=== PATIENT | male | born 1945 | race Caucasian/White ===

== ENCOUNTER 2017-02-01 08:00 | Outpatient (CLI) | payer MEDICARE, OTHER ==
[2017-02-01 18:52] LABS: BILIRUBIN,DIRECT 0.1 mg/dL (0.1-0.5); BUN - BLOOD UREA NITROGEN 19 mg/dL (6-20); CARBON DIOXIDE - CO2 24 mmol/L (21-32); CHLORIDE 106 mmol/L (101-111); CHOL/HDL RATIO 4.7 (<5.0); CHOLESTEROL 238 mg/dL; CREATININE 0.8 mg/dL (0.6-1.2); GFR - MDRD 95 (>89); GLUCOSE 108 mg/dL (70-100); HDL CHOLESTEROL 51 mg/dL; LDL/HDL RATIO 3.3 (<3.6); POTASSIUM 4.1 mmol/L (3.5-5.0); SODIUM 138 mmol/L (135-145); TOTAL PROTEIN 6.6 g/dL (6.7-8.2); TRIGLYCERIDES 86 mg/dL; VLDL CHOLESTEROL 17 mg/dL
== END 2017-02-01 08:01 | disposition home or self-care (01) ==
LOC: LAB.S 08:00
PROVIDERS: ATTEND Internal Medicine Cardiovascular Disease
DX: Z79.899 Other long term (current) drug therapy (principal)
CPT/HCPCS: 36415; 80048; 80061; 80076; 83735

== ENCOUNTER 2018-07-23 11:13 | Outpatient (CLI) | payer MEDICARE, OTHER | END 2018-07-23 11:14 | disposition home or self-care (01) | LOC: DI 11:13 | PROVIDERS: ATTEND Internal Medicine Cardiovascular Disease | DX: I35.1 Nonrheumatic aortic (valve) insufficiency (principal); I10 Essential (primary) hypertension; I77.810 Thoracic aortic ectasia | CPT/HCPCS: 93306 ==

== ENCOUNTER 2018-08-22 08:00 | Outpatient (CLI) | payer MEDICARE, OTHER ==
[2018-08-22 18:42] LABS: MAGNESIUM 2.3 mg/dL (1.7-2.8)
== END 2018-08-22 23:59 | disposition home or self-care (01) ==
LOC: LAB.S 08:00
PROVIDERS: ATTEND Internal Medicine Cardiovascular Disease
DX: Z51.81 Encounter for therapeutic drug level monitoring (principal); Z79.899 Other long term (current) drug therapy
CPT/HCPCS: 36415; 80048; 83735

== ENCOUNTER 2021-07-22 14:19 | Outpatient (CLI) | payer MEDICARE, OTHER ==
--- NOTE | 2021-07-22 17:03 | Ultrasound Report ---
PROCEDURE: Testicle INDICATIONS: SCROTAL MASS TECHNIQUE: Real-time scanning was performed of the scrotum and testicles, with image documentation. Color and p ulse Doppler interrogation was performed of both testicles. COMPARISON: None. FINDINGS: Right: Testicle is normal in size at 3.9 x 3.1 x 2.6 cm, and homogenous in echotexture. Epididymis is normal in overall size and morphology. There is a large right hydrocele with mobile echogenic debr is present. Avascular septations are also present. Overlying scrotal skin is normal in thickness. Left: Testicle is normal in size at 3.9 x 2.5 x 2.6 cm, and homogeneous in echotexture. There are mu ltiple epididymal head cysts, the largest of which measures 1.1 x 1.0 x 1.0 cm. There is a large left hydrocele with obile echogenic debris and septations. Overlying scrotal skin is normal in thickness. Doppler: Color and pulse Doppler demonstrate normal and symmetric arterial flow in both testicles. IMPRESSION: 1. Large bilateral hydroceles with mobile echogenic debris and internal septations. 2. Multiple left epididymal head cysts. Reviewed by: Camelia James MD on 07/22/2021 5:02 PM PDT Approved by: Camelia James MD on 07/22/2021 5:02 PM PDT Station ID: [id number]
== END 2021-07-22 14:20 | disposition home or self-care (01) ==
LOC: DI 14:19
PROVIDERS: ATTEND Internal Medicine
DX: N43.3 Hydrocele, unspecified (principal); N50.3 Cyst of epididymis

== ENCOUNTER 2021-09-15 10:05 | Outpatient (CLI) | payer MEDICARE, OTHER | END 2021-09-15 10:06 | disposition home or self-care (01) | LOC: LAB.S 10:05 | PROVIDERS: ATTEND Internal Medicine Cardiovascular Disease | DX: I48.20 Chronic atrial fibrillation, unspecified (principal) | CPT/HCPCS: 36416; 85610 ==

== ENCOUNTER 2021-09-26 10:24 | Outpatient (CLI) | payer MEDICARE, OTHER | END 2021-09-26 10:25 | disposition home or self-care (01) | LOC: LAB.S 10:24 | PROVIDERS: ATTEND Internal Medicine Cardiovascular Disease | DX: I48.20 Chronic atrial fibrillation, unspecified (principal) | CPT/HCPCS: 36416; 85610 ==

== ENCOUNTER 2021-10-15 13:02 | Outpatient (CLI) | payer MEDICARE, OTHER | END 2021-10-15 13:03 | disposition home or self-care (01) | LOC: LAB.S 13:02 | PROVIDERS: ATTEND Internal Medicine Cardiovascular Disease | DX: I48.20 Chronic atrial fibrillation, unspecified (principal) | CPT/HCPCS: 36416; 85610 ==

== ENCOUNTER 2021-11-25 11:32 | Outpatient (CLI) | payer MEDICARE, OTHER | END 2021-11-25 11:33 | disposition home or self-care (01) | LOC: LAB.S 11:32 | PROVIDERS: ATTEND Internal Medicine Cardiovascular Disease | DX: I48.20 Chronic atrial fibrillation, unspecified (principal) | CPT/HCPCS: 36416; 85610 ==

== ENCOUNTER 2021-11-26 18:28 | Outpatient (CLI) | payer MEDICARE, OTHER | END 2021-11-26 18:29 | disposition left against medical advice (07) | LOC: EMS 18:28 | DX: E86.0 Dehydration (principal) ==

== ENCOUNTER 2022-01-23 09:57 | Outpatient (CLI) | payer MEDICARE, OTHER ==
[2022-01-23 14:50] LABS: BASOPHILS # (AUTO) 0.1 10^3/uL (0.0-0.1); BASOPHILS % (AUTO) 1.5 %; EOSINOPHILS # (AUTO) 0.1 10^3/uL (0.0-0.7); EOSINOPHILS % (AUTO) 2.2 %; HCT - HEMATOCRIT 45.4 % (42.0-52.0); HGB - HEMOGLOBIN 14.5 g/dL (14.0-18.0); LYMPHOCYTES % (AUTO) 24.7 %; MEAN CORPUSCULAR HEMOGLOBIN 30.9 pg (27.0-31.0); MEAN CORPUSCULAR HGB CONC 31.9 g/dL (32.0-36.0); MEAN CORPUSCULAR VOLUME 96.8 fL (80.0-94.0); MEAN PLATELET VOLUME 9.8 fL (7.4-11.4); MONOCYTES # (AUTO) 0.5 10^3/uL (0.0-1.0); MONOCYTES % (AUTO) 12.8 %; NEUTROPHILS # (AUTO) 2.4 10^3/uL (1.5-6.6); NEUTROPHILS % (AUTO) 58.3 %; PLT - PLATELET COUNT 163 10^3/uL (130-450); RED BLOOD COUNT 4.69 10^6/uL (4.70-6.10); RED CELL DISTRIBUTION WIDTH 14.6 % (12.0-15.0); WHITE BLOOD COUNT 4.1 x10^3/uL (4.8-10.8)
[2022-01-23 15:15] LABS: ALBUMIN 3.9 g/dL (3.2-5.5); ALBUMIN/GLOBULIN RATIO 1.3 (1.0-2.2); ALKALINE PHOSPHATASE 52 IU/L (42-121); ALT ALANINE AMINOTRANSFERASE 22 IU/L (10-60); AST ASPARTATE AMINOTRANSFERASE 21 IU/L (10-42); BILIRUBIN,TOTAL 0.8 mg/dL (0.2-1.0); BUN - BLOOD UREA NITROGEN 21 mg/dL (6-20); CALCIUM 8.8 mg/dL (8.5-10.3); CARBON DIOXIDE - CO2 31 mmol/L (21-32); CHLORIDE 101 mmol/L (101-111); CHOL/HDL RATIO 3.9 (<5.0); CHOLESTEROL 210 mg/dL; CREATININE 1.1 mg/dL (0.6-1.2); GFR - MDRD 65 (>89); GLUCOSE 110 mg/dL (70-100); HDL CHOLESTEROL 54 mg/dL; LDL CHOLESTEROL,CALCULATED 129 mg/dL; LDL/HDL RATIO 2.4 (<3.6); POTASSIUM 4.4 mmol/L (3.5-5.0); SODIUM 137 mmol/L (135-145); TOTAL PROTEIN 6.9 g/dL (6.7-8.2); TRIGLYCERIDES 137 mg/dL; VLDL CHOLESTEROL 27 mg/dL
[2022-01-23 18:02] LABS: ESTIMATED AVERAGE GLUCOSE 128 mg/dL (70-100); HEMOGLOBIN A1c% 6.1 % (4.27-6.07)
== END 2022-01-23 09:58 | disposition home or self-care (01) ==
LOC: LAB.S 09:57
PROVIDERS: ATTEND Internal Medicine Cardiovascular Disease
DX: Z00.00 Encounter for general adult medical examination without abnormal findings (principal); I48.19 Other persistent atrial fibrillation
CPT/HCPCS: 36415; 80053; 80061; 83036; 83721; 85025; 85610

== ENCOUNTER 2022-02-06 10:58 | Outpatient (CLI) | payer MEDICARE, OTHER | END 2022-02-06 10:59 | disposition home or self-care (01) | LOC: LAB.S 10:58 | PROVIDERS: ATTEND Internal Medicine Cardiovascular Disease | DX: I48.20 Chronic atrial fibrillation, unspecified (principal) | CPT/HCPCS: 36416; 85610 ==

== ENCOUNTER 2022-03-30 10:58 | Outpatient (CLI) | payer MEDICARE, OTHER | END 2022-03-30 10:59 | disposition home or self-care (01) | LOC: LAB.S 10:58 | PROVIDERS: ATTEND Internal Medicine Cardiovascular Disease | DX: I48.20 Chronic atrial fibrillation, unspecified (principal) | CPT/HCPCS: 36416; 85610 ==

== ENCOUNTER 2022-04-30 11:05 | Outpatient (CLI) | payer MEDICARE, OTHER | END 2022-04-30 11:06 | disposition home or self-care (01) | LOC: LAB.S 11:05 | PROVIDERS: ATTEND Internal Medicine Cardiovascular Disease | DX: I48.20 Chronic atrial fibrillation, unspecified (principal) | CPT/HCPCS: 36416; 85610 ==

== ENCOUNTER 2022-08-10 10:34 | Outpatient (CLI) | payer MEDICARE, OTHER | END 2022-08-10 10:35 | disposition home or self-care (01) | LOC: LAB.S 10:34 | PROVIDERS: ATTEND Internal Medicine Cardiovascular Disease | DX: I48.20 Chronic atrial fibrillation, unspecified (principal) | CPT/HCPCS: 36416; 85610 ==

== ENCOUNTER 2022-09-24 10:44 | Outpatient (CLI) | payer MEDICARE, OTHER | END 2022-09-24 10:45 | disposition home or self-care (01) | LOC: LAB.S 10:44 | PROVIDERS: ATTEND Internal Medicine Cardiovascular Disease | DX: I48.20 Chronic atrial fibrillation, unspecified (principal) | CPT/HCPCS: 36416; 85610 ==

== ENCOUNTER 2022-11-06 10:18 | Outpatient (CLI) | payer MEDICARE, OTHER | END 2022-11-06 10:19 | disposition home or self-care (01) | LOC: LAB.S 10:18 | PROVIDERS: ATTEND Internal Medicine Cardiovascular Disease | DX: I48.20 Chronic atrial fibrillation, unspecified (principal) | CPT/HCPCS: 85610 ==

== ENCOUNTER 2023-01-29 11:32 | Outpatient (CLI) | payer MEDICARE, OTHER | END 2023-01-29 11:33 | disposition home or self-care (01) | LOC: LAB.S 11:32 | PROVIDERS: ATTEND Internal Medicine Cardiovascular Disease | DX: I48.20 Chronic atrial fibrillation, unspecified (principal) | CPT/HCPCS: 36416; 85610 ==

== ENCOUNTER 2023-03-12 11:50 | Outpatient (CLI) | payer MEDICARE, OTHER | END 2023-03-12 11:51 | disposition home or self-care (01) | LOC: LAB.S 11:50 | PROVIDERS: ATTEND Internal Medicine Cardiovascular Disease | DX: I48.20 Chronic atrial fibrillation, unspecified (principal) | CPT/HCPCS: 36416; 85610 ==

== ENCOUNTER 2023-05-24 10:50 | Outpatient (CLI) | payer MEDICARE, OTHER | END 2023-05-24 10:51 | disposition home or self-care (01) | LOC: LAB.S 10:50 | PROVIDERS: ATTEND Internal Medicine Cardiovascular Disease | DX: I48.20 Chronic atrial fibrillation, unspecified (principal) | CPT/HCPCS: 36416; 85610 ==

== ENCOUNTER 2023-06-07 11:16 | Outpatient (CLI) | payer MEDICARE, OTHER | END 2023-06-07 11:17 | disposition home or self-care (01) | LOC: LAB.S 11:16 | PROVIDERS: ATTEND Internal Medicine Cardiovascular Disease | DX: I48.20 Chronic atrial fibrillation, unspecified (principal) | CPT/HCPCS: 36416; 85610 ==

== ENCOUNTER 2023-06-17 11:21 | Outpatient (CLI) | payer MEDICARE, OTHER ==
[2023-06-17 14:43] LABS: BASOPHILS # (AUTO) 0.1 10^3/uL (0.0-0.1); BASOPHILS % (AUTO) 1.2 %; EOSINOPHILS # (AUTO) 0.1 10^3/uL (0.0-0.7); EOSINOPHILS % (AUTO) 1.9 %; HCT - HEMATOCRIT 44.4 % (42.0-52.0); HGB - HEMOGLOBIN 14.1 g/dL (14.0-18.0); LYMPHOCYTES # (AUTO) 0.9 10^3/uL (1.5-3.5); LYMPHOCYTES % (AUTO) 21.6 %; MEAN CORPUSCULAR HEMOGLOBIN 30.8 pg (27.0-31.0); MEAN CORPUSCULAR HGB CONC 31.8 g/dL (32.0-36.0); MEAN CORPUSCULAR VOLUME 96.9 fL (80.0-94.0); MEAN PLATELET VOLUME 9.9 fL (7.4-11.4); MONOCYTES # (AUTO) 0.5 10^3/uL (0.0-1.0); MONOCYTES % (AUTO) 11.2 %; NEUTROPHILS # (AUTO) 2.7 10^3/uL (1.5-6.6); NEUTROPHILS % (AUTO) 63.4 %; PLT - PLATELET COUNT 179 10^3/uL (130-450); RED BLOOD COUNT 4.58 10^6/uL (4.70-6.10); RED CELL DISTRIBUTION WIDTH 14.2 % (12.0-15.0); WHITE BLOOD COUNT 4.3 x10^3/uL (4.8-10.8)
[2023-06-17 15:41] LABS: CALCIUM 9.9 mg/dL (8.5-10.3); POTASSIUM 4.7 mmol/L (3.5-4.5)
== END 2023-06-17 11:22 | disposition home or self-care (01) ==
LOC: LAB.S 11:21
PROVIDERS: ATTEND Internal Medicine
DX: I48.91 Unspecified atrial fibrillation (principal)
CPT/HCPCS: 36415; 80048; 85025

== ENCOUNTER 2023-07-05 10:50 | Outpatient (CLI) | payer MEDICARE, OTHER | END 2023-07-05 10:51 | disposition home or self-care (01) | LOC: LAB.S 10:50 | PROVIDERS: ATTEND Internal Medicine Cardiovascular Disease | DX: I48.20 Chronic atrial fibrillation, unspecified (principal) | CPT/HCPCS: 36416; 85610 ==

== ENCOUNTER 2023-08-02 10:14 | Outpatient (CLI) | payer MEDICARE, OTHER | END 2023-08-02 10:15 | disposition home or self-care (01) | LOC: LAB.S 10:14 | PROVIDERS: ATTEND Internal Medicine Cardiovascular Disease | DX: I48.20 Chronic atrial fibrillation, unspecified (principal) | CPT/HCPCS: 36416; 85610 ==